=== PATIENT | male | born 1985 | race American Indian/Alaskan Native ===

== ENCOUNTER 2024-08-14 09:48 | Inpatient (IN) | payer OTHER ==
[~2024-08-14] VITALS: Ht 180.3 cm; Wt 102.0 kg
[2024-08-14] MEDS: ACETAMINOPHEN 325 MG TABLET PO ONE (11:18)
[2024-08-14] MEDS: IBUPROFEN 400 MG TABLET PO ONE ×2 (11:18→16:25)
[2024-08-14] MEDS ORDERED: IPRATROPIUM BROMIDE 0.5 MG/2.5 ML NEB SOLUTION NEB PRN (21:15)
[2024-08-14] MEDS ORDERED: ALBUTEROL SULFATE 2.5 MG/0.5 ML NEB SOLUTION NEB PRN (21:15)
[2024-08-14] MEDS ORDERED: ACETAMINOPHEN 325 MG TABLET PO PRN (21:15)
[2024-08-14] MEDS ORDERED: MAGNESIUM HYDROXIDE SUSPENSION 30 ML UDCUP PO PRN (21:15)
[2024-08-14] MEDS ORDERED: ONDANSETRON HCL 4 MG/2 ML VIAL IVP PRN (21:15)
[2024-08-14] MEDS ORDERED: ZOLPIDEM TARTRATE 5 MG TABLET PO PRN (21:15)
[2024-08-14] MEDS ORDERED: BISACODYL 10 MG RECTAL RECTAL SUPPOSITORY PR PRN (21:15)
[2024-08-14 21:16] VITALS: BP 131/76; PULSE 63; RESP 18; TEMP 98; O2SAT 97
[2024-08-14] MEDS: ACETAMINOPHEN/CODEINE 300-30 MG TABLET PO PRN (22:15)
[2024-08-15] MEDS: HEPARIN SODIUM,PORCINE 5,000 UNITS/ML VIAL SQ SCH
[2024-08-15] MEDS ORDERED: ACET-2247 PO (00:09)
[2024-08-15] MEDS ORDERED: PANTOPRAZOLE SODIUM 40 MG DR TABLET PO SCH (09:00)
[2024-08-16 03:09] LABS: HEPATITIS C AB (EIA) Non Reactive (Non Reactive)
== END 2024-08-15 04:34 | DRG 556 ==
LOC: EMS 10:29 → EDH 17:56 → 6S 20:16
PROVIDERS: ADMIT Hospitalist; ATTEND Hospitalist
DX: M25.572 Pain in left ankle and joints of left foot (principal); M25.472 Effusion, left ankle; W01.0XXD Fall on same level from slipping, tripping and stumbling without subsequent striking against object, subsequent encounter; Z79.899 Other long term (current) drug therapy; Z87.891 Personal history of nicotine dependence; S82.392D Other fracture of lower end of left tibia, subsequent encounter for closed fracture with routine healing
CPT/HCPCS: 86803; 87340; 99285; J1644